=== PATIENT | male | born 1950 | race Hispanic/Latino ===

== ENCOUNTER 2019-05-12 15:25 | Emergency (ER) | payer OTHER ==
[~2019-05-12] VITALS: Ht 172.7 cm; Wt 84.4 kg
[2019-05-12] MEDS ORDERED: COREG6.25 MG PO (15:53)
[2019-05-12] MEDS ORDERED: CITALOPRAM HBR40 MG PO (15:53)
[2019-05-12] MEDS ORDERED: ASPIR 8181 MG PO (15:53)
[2019-05-12] MEDS ORDERED: DOCUSATE SODIU250 MG PO (15:54)
[2019-05-12] MEDS ORDERED: NITROSTAT0.4 MG SL (15:55)
[2019-05-12] MEDS ORDERED: ACID CONTROL150 MG PO (15:56)
[2019-05-12] MEDS ORDERED: CRESTOR40 MG NG (15:56)
[2019-05-12] MEDS ORDERED: ALL DAY ALLERGY10 M3 PO (15:59)
[2019-05-12] MEDS ORDERED: HYDROXYZINE HCL50 MG PO (16:00)
== END 2019-05-12 18:08 | disposition home or self-care (01) ==
LOC: ED 15:25
DX: I80.01 Phlebitis and thrombophlebitis of superficial vessels of right lower extremity (principal); I10 Essential (primary) hypertension; Z87.891 Personal history of nicotine dependence; Z88.8 Allergy status to other drugs, medicaments and biological substances; Z88.5 Allergy status to narcotic agent; Z88.1 Allergy status to other antibiotic agents; Z79.899 Other long term (current) drug therapy; Z79.82 Long term (current) use of aspirin
CPT/HCPCS: 93971; 99284-25

== ENCOUNTER 2020-10-10 13:25 | Emergency (ER) | payer OTHER ==
[~2020-10-10] VITALS: Ht 172.7 cm; Wt 84.4 kg
[~2020-10-10 13:25] MED LIST: ACID CONTROL150 MG PO; ALL DAY ALLERGY10 M3 PO; CITALOPRAM HBR40 MG PO; COREG6.25 MG PO; CRESTOR20 MG PO; DOCUSATE SODIU250 MG PO; HYDROXYZINE HCL50 MG PO; NITROSTAT0.4 MG SL
[2020-10-10] MEDS ORDERED: NORVASC5 MG PO (13:37)
[2020-10-10] MEDS ORDERED: FLUVOXAMINE MA100 MG PO (13:38)
[2020-10-10] MEDS ORDERED: NAPROXEN500 MG PO (13:39)
[2020-10-10] MEDS ORDERED: VENTOLIN HFA18 GM INH (13:40)
[2020-10-10] MEDS ORDERED: BEVESPI AEROS10.7 GM INH (13:40)
[2020-10-10] MEDS ORDERED: OMEPRAZOLE40 MG PO (13:41)
[2020-10-10] MEDS ORDERED: DOXYCYCLINE HY100 MG PO (13:44)
--- NOTE | 2020-10-11 19:57 | EKG ---
[facility] [address] [facility] [place], [place] [address] Signed Normal sinus rhythm Septal infarct , age undetermined T wave abnormality, consider inferolateral ischemia Abnormal ECG No previous ECGs available Confirmed by SETH KATHLEEN DO ([id number]) on 10/11/2020 7:56:47 PM Electronically Signed By: SETH KATHLEEN DO 10/11/201956 PATIENT NAME: UTE SU Electrocardiogram DATE OF : 52 PHYSICIAN: SETH KATHLEEN DO REPORT #: [id number] REPORT IS CONFIDENTIAL AND NOT TO BE RELEASED WITHOUT AUTHORIZATION
== END 2020-10-10 17:15 | disposition home or self-care (01) ==
LOC: ED 13:25
DX: J90 Pleural effusion, not elsewhere classified (principal); R91.8 Other nonspecific abnormal finding of lung field; I10 Essential (primary) hypertension; E78.00 Pure hypercholesterolemia, unspecified; Z87.891 Personal history of nicotine dependence; Z88.8 Allergy status to other drugs, medicaments and biological substances; Z88.5 Allergy status to narcotic agent; Z88.1 Allergy status to other antibiotic agents; Z79.899 Other long term (current) drug therapy; Z79.82 Long term (current) use of aspirin
CPT/HCPCS: 71045; 71260; 80053; 84484; 85025; 93005; 93010; 99285-25; Q9967

== ENCOUNTER 2020-10-19 07:26 | Observation (INO) | payer OTHER ==
[~2020-10-19] VITALS: Ht 172.7 cm; Wt 85.0 kg
[~2020-10-19 07:26] MED LIST changes: +BEVESPI AEROS10.7 GM INH; +DOXYCYCLINE HY100 MG PO; +FLUVOXAMINE MA100 MG PO; +NAPROXEN500 MG PO; +NORVASC5 MG PO; +OMEPRAZOLE40 MG PO; +VENTOLIN HFA18 GM INH
--- NOTE | 2020-10-19 12:26 | NUR ---
1110: IMAGING ARRIVES ON THE UNIT FOR PORTABLE CHEST X-RAY 1215: XRAY REVIEWED BY MD BRANDEN. NEW ORDERS RECEIVED FOR IMAGIN TO RETURN IN 2 HOURS FROM POST PROCEDURAL XRAY TO COMPLETE INSPIRATORY AND EXPIRATORY XRAY. 1220: PT COMFORTABLE. REPORTS DECREASED WORK OF BREATHING. VSS, RESP EVEN AND UNLABORED. NO NEEDS VOICED AT THIS TIME. [facility] GUARDS REMAIN AT THE BEDSIDE. CALL LIGHT WITHIN REACH
--- NOTE | 2020-10-19 13:21 | NUR ---
1315: IMAGING ARRIVES AT THE BEDSIDE TO COMPLETE INSPIRATORY AND EXPIRATORY XRAY. RESULTS TO BE CALLED TO MD BRANDEN
--- NOTE | 2020-10-19 15:18 | NUR ---
1400: CHEST XRAY REVIEWED BY MD BRANDEN. NEW ORDER RECEIVED FOR PT TO BE ADMITTED TO SURGICAL UNIT. NURSING POLE FRAMER MACHINE NOTIFIED AND BED ACQUIRED. 20G IV STARTED AND FIRST LITER OF LR STARTED ORDERED. 1425: PT WHEELED TO ROOM 109 ON SURGICAL UNIT IN STRETCHER ACCOMPANIED BY TWO [facility] GUARDS. PT TRANSFERS TO BED INDEPENDENTLY. BEDSIDE REPORT GIVEN TO PARKER ATKINSON AND CARE ASSUMED
--- NOTE | 2020-10-19 15:26 | NUR ---
PT TO ROOM VIA BEBARFAREEDEY ABLE TO SELF TRANSFER TO BED. PT DENIES PAIN OR DISCOMFORTS. VITALS IN NORMAL RANGE SATS HIGH 90'S GAURDS ARE PRESENT. REPORT RECEIVED. H20 AND CALL LIGHT AT BEDSIDE MEAL ORDERED
--- NOTE | 2020-10-19 15:30 | NUR ---
BOTH NARES SWABBED FOR COVID-19 WITHOUT COMPLICATION. SAMPLE TAKEN TO LAB.
--- NOTE | 2020-10-19 16:44 | NUR ---
PT HAS CONTINUED TO BE UPBEAT AND TALKATIVE SINCE RETURN FROM PACU. HE IS RESTING IN BED GAURDS PRESENT. PT USES CALL LIGHT APPROPRIATELY AND IS COOPERATIVE. EATS 100% OF AFTERNOON MEAL DRINKING PLENTY OF FLUIDS. DENIES PAIN, DISCOMFORTS, OR SOB. SATS REMAIN IN THE HIGH 90'S AT EACH CHECK. PT VERBALIZES UNDERSTANDING OF S/S TP REPORT TO STAFF.
[2020-10-19] MEDS ORDERED: ADULT ASPIRIN R81 MG PO (18:33)
--- NOTE | 2020-10-19 18:33 | NUR ---
PATIENT IN BED WATCHING TV. GUARD IN ROOM. FRESH WATER GIVEN. VITALS AND I&O'S CHARTED. CALL LIGHT IN REACH. NO FURTHER NEEDS AT THIS TIME.
[2020-10-19] MEDS ORDERED: CRESTOR10 MG PO (18:39)
[2020-10-19] MEDS ORDERED: FLOMAX0.4 MG PO (18:41)
[2020-10-19] MEDS ORDERED: NASACORT10.8 ML NAS (18:44)
--- NOTE | 2020-10-19 18:44 | NUR ---
MED REC COMPLETE
--- NOTE | 2020-10-19 19:35 | NUR ---
BEDSIDE REPORT RECEIVED FROM PARKER GARCIA. pt RESTING IN BED. GUARDS IN ROOM. pt DENIES PAIN. DENIES NEEDS AT THIS TIME. IVF INFUSING WNL. URINAL EMPTIED IN RESTROOM. CHEST X-RAY COMPLETE AROUND 1899.
--- NOTE | 2020-10-19 20:20 | NUR ---
DR OTERO IN EXAMINED PT. PLAN TO HOLD OFF ON THE CHEST TUBE AT THIS TIME.
--- NOTE | 2020-10-19 20:43 | NUR ---
pt AWAKE RESTING IN BED AWAKE. GUARDS IN ROOM. IV SITE FLUSHED WNL, GOOD BLOOD RETURN. IVF INFUSING ORDERED WNL. LUNG SOUNDS CLEAR THROUGHOUT ALL LOBES. 2L OYXGEN BY NC IN PLACE. VSS. BANDAID CLEAN DRY AND INTACT OF LEFT SIDE. SANDWICH BOX PROVIDED REQUESTED. CALL LIGHT WITHIN REACH. NO ADDITIONAL NEEDS AT THIS TIME.
--- NOTE | 2020-10-19 22:35 | NUR ---
CHECKED ON pt. RESTING IN BED ON RIGHT SIDE WITH 2L OXYGEN BY NC IN PLACE. BREATHING EQUAL AND UNLABORED. GUARDS PRESENT IN ROOM.
--- NOTE | 2020-10-20 00:23 | NUR ---
ANSWERED CALL LIGHT. WATER PROVIDED. EMPTIED URINAL.
--- NOTE | 2020-10-20 00:50 | NUR ---
pt AWAKE RESTING IN BED WATCHING TV. STATES "I WAS ASLEEP, BUT JUST WOKE UP AFTER THE GUARDS SWITCHED". NEW BAG IVF INFUSING WNL ORDERED. NO REQUESTS AT THIS TIME.
--- NOTE | 2020-10-20 01:59 | NUR ---
pt SLEEPING, AWAKENS TO VOICE. VSS. ASSESSMENT COMPLETE. LUNG SOUNDS CLEAR THROUGHOUT. 2L OXYGEN BY NC IN PLACE. IVF INFUSING WNL. pt DENIES PAIN. DENIES SOB. DENIES ANY NEEDS. GUARDS PRESENT IN ROOM.
--- NOTE | 2020-10-20 05:00 | NUR ---
CHECKED ON pt. RESTING IN BED AWAKE, GUARDS AT BEDSIDE. VSS. 2L OYXGEN BY NC IN PLACE. NO RESPIRATORY DISTRESS NOTED. URINAL EMPTIED. CALL LIGHT IN REACH.
--- NOTE | 2020-10-20 07:10 | NUR ---
Report received from April CANALES. Pt resting in bed, no needs identified at this time, will continue plan of care.
--- NOTE | 2020-10-20 08:00 | NUR ---
Spoke with pt and he reside at [facility]. He uses a walker and a shower chair. Denies needs on dc. States he is feeling 100% better since his thoracentesis. Will return to [facility] on dc with correctional of- ficers.
--- NOTE | 2020-10-20 09:30 | NUR ---
This RN in room to assess patient, resting in bed and stating no pain or needs, "feeling better today". VSS, A+O. Lung sounds clear. Intermittent shallow breaths between deep breathing. 2L O2 NC in place, spo2 98%. Bowel tones active, breakfast ordered. No further needs.
--- NOTE | 2020-10-20 11:30 | NUR ---
Discharge teaching provided and pt verbalizes understanding. No questions at this time. Educated regarding signs and sx of emergency, when to seek treatment, patient demonstrates learning. VSS. IV removed. Pt on RA and tolerating well with SPO2 at 95%. Discharge paperwork provided to correctional officers and report called to [facility].
--- NOTE | 2020-10-20 11:41 | OR ---
[facility] [address] [place], [place] [address] Signed DATE OF OPERATION: 10/19/2020 SURGEON: Melia Otero MD PREOPERATIVE DIAGNOSES: 1. Left pleural effusion; probable malignant. 2. Left lung nodules, mediastinal adenopathy and basilar atelectasis. POSTOPERATIVE DIAGNOSES: 1. Left pleural effusion; probable malignant. 2. Left lung nodules, mediastinal adenopathy and basilar atelectasis. PROCEDURE: Left thoracentesis (2.8 L). ANESTHESIA: 6 mL of lidocaine 1% with epinephrine. INDICATION: This 70-year-old white man is a prisoner at [facility]. He has been referred as an outpatient by ZAKI Booth, with recent findings of a symptomatic large left pleural effusion. A CT scan has shown mediastinal adenopathy, pleural nodules on the left side and high probability, the effusion represents a malignant pleural effusion. He is increasingly symptomatic. He was seen in the emergency room by Dr. Juan Jose Sol on October 10, confirming these findings with CT scan. A chest x-ray was performed today prior to my consultation with him as outpatient confirming a very large left pleural effusion. He did not have mediastinal shift. I have recommended a left pleural thoracentesis for collection of fluid to assess cytology and affirm the clinical suspicion of malignancy which may guide further therapy. Notably, if the pleural effusion proves to be malignant, then treatment for cure would be unlikely. In addition to the diagnostic intention of thoracentesis, a therapeutic one is intended as he does have significant dyspnea, particularly with exertion. The patient does have some chest wall pain and is considered to have some bony metastatic lesions of the ribs as well. The risks of bleeding, infection, pneumothorax, and other unforeseen complications were reviewed in detail with the patient. He understands and wishes to proceed. FINDINGS: Bloody left pleural effusion was noted upon aspiration. Nearly 2.8 L was extracted, which did result in characteristic cough and some apical discomfort. In time, this Electronically Signed By: MELIA OTERO MD 10/20/20 1141 PATIENT NAME: UTE SU OPERATIVE REPORT DATE OF : 52 REPORT #: [id number] PHYSICIAN: MELIA OTERO MD PCP: BLANCA CALVIN MD REPORT IS CONFIDENTIAL AND NOT TO BE RELEASED WITHOUT AUTHORIZATION [facility] [address] [place], [place] [address] Signed resolved entirely. A postprocedure chest x-ray was obtained which showed essentially clearance of the pleural effusion, but with some remaining basilar atelectasis, but also with a very small paramediastinal pneumothorax identified primarily by the radiologist (Dr. Cortés). A 2 hour post chest x-ray repeat is anticipated to assure there is no progression of the pneumothorax, which is small enough, I would not recommend chest tube placement at this time. DESCRIPTION OF PROCEDURE: In the upright position with arms draped over a [place] stand with pillows. The left chest was examined with the [employer] ultrasound device. This did show pleural effusion. The left scapular tip was identified and marked and the area of the left posterior thorax prepared with a chlorhexidine solution and draped sterilely. A 1% lidocaine with epinephrine was injected locally including directly over what was likely the 7th rib. The pleural space was gently entered with the finding needle showing some bloody pleural fluid. Using the thoracentesis catheter kit passage directly over the top of the 7th rib was undertaken passing into the pleural space and delivering bloody morenita fluid without problem. The flexible catheter was advanced into the pleural space. The needle itself removed. A three way stopcock device was used to allow for drainage with Vacutainer bottles. Three bottles were used with a total of approximately 2.8 L in total removed. Careful monitoring during the course of thoracentesis did not show any adverse effects (re-expansion pulmonary edema, etc.) from a clinical standpoint. He did have a cough toward the end of the thoracentesis and some left shoulder pain. The catheter was removed. A Band-Aid was applied. A portable chest x-ray was performed and reviewed with Dr. Cortés showing what was considered a "mediastinal" pneumothorax which was quite tiny. This was met in the air space in alignment with the mediastinum. There was no large pneumothorax by any means. Clearance of the pleural space was noted though there remains basilar atelectasis on the left. A post chest x-ray repeat in 2 hours with inspiration, expiratory technique will be undertaken to assure that the tiny pneumothorax has not expanded. Discussed all this with the patient. MD ABBEY Galvan/MAUREEN /[id number] Electronically Signed By: MELIA OTERO MD 10/20/20 1141 PATIENT NAME: UTE SU OPERATIVE REPORT DATE OF : 52 REPORT #: [id number] PHYSICIAN: MELIA OTERO MD PCP: BLANCA CALVIN MD REPORT IS CONFIDENTIAL AND NOT TO BE RELEASED WITHOUT AUTHORIZATION [address], [place] [address] Signed cc: ZAKI Castañeda Copies: MARIMAR GOODE ~ Electronically Signed By: MELIA OTERO MD 10/20/20 1141 PATIENT NAME: UTE SU OPERATIVE REPORT DATE OF : 52 REPORT #: [id number] PHYSICIAN: MELIA OTERO MD PCP: BLANCA CALVIN MD REPORT IS CONFIDENTIAL AND NOT TO BE RELEASED WITHOUT AUTHORIZATION
--- NOTE | 2020-10-20 11:41 | CONS ---
[facility] [address] [place], [place] [address] Signed DATE OF CONSULTATION: 10/19/2020 REQUESTING PHYSICIAN: Marimar Goode, [facility] ([place] [facility] PROBLEM: Symptomatic left pleural effusion, left pulmonary mass. HISTORY OF PRESENT ILLNESS: This 70-year-old white man is a prisoner at [facility], previously a patient of Dr. Calvin. He has been identified as having shortness of breath for several months and evaluation has shown through the emergency room evaluation on October 10, 2020. A left-sided pleural effusion. A CT scan was performed, which showed a large left pleural effusion as well as a dense opacification of the left lung base, multiple vertebral OSTEOLYTIC lesions likely considered metastatic and bilateral mediastinal and right hilar lymphadenopathy also considered malignant. Pleural nodularity was noted on the left side. The patient has significant dyspnea. He was seen in the emergency room and returned to the [facility] where consideration was made for an outpatient thoracentesis to establish a diagnosis related to the pleural effusion as well as treatment of the dyspnea associated with the pleural effusion. It is highly improbable that this process would be curable by conventional methods. The patient initially presented to the emergency room several days ago with some hemoptysis, which has not been persistent. The patient says that his hemoptysis is more likely related to "dried out mucous membranes." LAB STUDIES: Recently performed showed electrolytes normal, though creatinine was elevated at 1.32. Liver enzymes show an elevated alkaline phosphatase of 194. Troponin was 0.05. Albumin 4.0. A CBC showed a white count of 9.5 and hematocrit of 46.1 with platelets 287,000. Currently, patient has some pain in his ribs on the left side with intense coughing, which occurs occasionally and but no other particular issues other than the dyspnea. 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 He takes no chronic anticoagulants of any sort. MEDICATIONS: Include aspirin, carvedilol, nitroglycerin as needed for chest pain, previously Zantac, Electronically Signed By: MELIA OTERO MD 10/20/20 1141 PATIENT NAME: UTE SU CONSULTATION DATE OF : 52 REPORT #: [id number] PHYSICIAN: MELIA OTERO MD PCP: BLANCA CALVIN MD REPORT IS CONFIDENTIAL AND NOT TO BE RELEASED WITHOUT AUTHORIZATION [facility] [address] [place], [place] [address] Signed and Crestor. ALLERGIES: He is considered to have allergies to phenothiazines, atorvastatin, chlorpromazine, codeine, morphine, and niacin. REVIEW OF SYSTEMS: He denies any new symptoms other than those described previously. PHYSICAL EXAMINATION: GENERAL: Bearded white man who appears to be comfortable and not toxic in any way. NECK: Trachea is midline. CHEST: Shows normal respiratory excursion. Mildly tachypneic with a respiratory rate of 20. ABDOMEN: Soft and nondistended. I detect no ascites. EXTREMITIES: Show no clubbing, cyanosis, or edema. A chest x-ray has been performed which I will review. 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 I have discussed with the patient the issue regarding thoracentesis which would allow for probably temporary improvement of his dyspnea, but importantly cytologic examination of the fluid to assess for malignancy. Additional measures for palliative therapy would be undertaken if that was noted. If a malignant pleural effusion is identified, consideration might ultimately be made for left-sided pleurodesis for palliative intent. We discussed all of this. The risks of bleeding, infection, pneumothorax, and so forth were reviewed with him. He is not at increased risk of bleeding based on his lab studies or history though it is always a consideration. We will proceed with thoracentesis today to accommodate the logistical difficulties of [place] [facility] to assist him in his symptomatic effusion and for diagnosis. MD ABBEY Galvan/IZAL Electronically Signed By: MELIA OTERO MD 10/20/20 1141 PATIENT NAME: UTE SU CONSULTATION DATE OF : 52 REPORT #: [id number] PHYSICIAN: MELIA OTERO MD PCP: BLANCA CALVIN MD REPORT IS CONFIDENTIAL AND NOT TO BE RELEASED WITHOUT AUTHORIZATION [facility] [address], [place] [address] Signed /[id number] cc: ZAKI Springer [facility] Copies: MARIMAR GOODE ~ Electronically Signed By: MELIA OTERO MD 10/20/20 1141 PATIENT NAME: UTE SU CONSULTATION DATE OF : 52 REPORT #: [id number] PHYSICIAN: MELIA OTERO MD PCP: BLANCA CALVIN MD REPORT IS CONFIDENTIAL AND NOT TO BE RELEASED WITHOUT AUTHORIZATION
--- NOTE | 2020-11-05 08:41 | PATH ---
[facility] [address] [place], [place] [address] Signed THIS IS AN ADDENDUM REPORT ORDERING PHYSICIAN: Loco Veliz MD PATIENT NAME: UTE SU GENDER: M : 1950 SPECIMEN(S): A LEFT PLEURAL FLUID GROSS DESCRIPTION: RECEIVED IN A SYRINGE, 41 ML OF MURKY, BLACK-RED FLUID, FRESH CLINICAL HISTORY: NO CLINICAL DATA PROVIDED LABORATORY PREPARATIONS: 1 MONOLAYER, 1 CELL BLOCK CYTOLOGIC INTERPRETATION: Pleural effusion, left: Positive for malignant cells. Non-small cell lung carcinoma - Adenocarcinoma. See Description. PATHOLOGIST COMMENTS: A diagnostic alert was initiated by Dr. Riley on 10/22/2020 (Dr. Veliz to be called). As part of [facility]' Quality Improvement Program, this case was reviewed by another member of our pathology staff. ALK, EGFR, ROS1, and YOK1oevytpn is recommended. Please contact [facility] with testing request. NAL:NRT:emh:C1NR DESCRIPTION: One monolayer slide and one cell block slide were examined and demonstrate numerous malignant cells present singly and in clusters, characterized by enlarged round to oval nuclei with vesicular chromatin, prominent nucleoli, and eosinophilic cytoplasm with occasional cytoplasmic vacuoles. There is a background of chronic inflammatory cells. A panel of immunohistochemical stains (with appropriately staining controls) were performed. The tumor cells are positive for MOC31 and BerEP4, confirming epithelial origin. A TTF-1/Napsin multiplex stain (with appropriately staining PATIENT NAME: UTE SU PATHOLOGY DATE OF : 52 REPORT #: [id number] PHYSICIAN: ELISA HURTADO PCP: BLANCA CALVIN MD REPORT IS CONFIDENTIAL AND NOT TO BE RELEASED WITHOUT AUTHORIZATION [facility] [address] [place], [place] [address] Signed controls) is positive within the tumor cells, supporting the diagnosis of non-small cell lung carcinoma, consistent with adenocarcinoma. Calretinin highlights rare background mesothelial cells, and WT1 demonstrates non-specific, rare cytoplasmic tumor cell staining. NAL:em SPECIMEN ADEQUACY: Satisfactory for Evaluation ADDITIONAL NOTES: Immunohistochemical and/or in situ hybridization studies were performed on this case with the appropriate positive controls that react as expected. This test was developed and its performance characteristics determined by [facility]. It has not been cleared or approved by the U.S. Food and Drug Administration. The FDA has determined that such clearance or approval is not necessary. This test is used for clinical purposes. It should not be regarded as investigational or for research. [facility] is certified under the Clinical Laboratory Improvement Amendments of 1988 (CLIA) as qualified to perform high complexity clinical laboratory testing. This assay has not been validated for specimens that have been decalcified. PERFORMING LABORATORY: Professional interpretation was performed by [facility], [facility], [address] [address] (Professor Of Anthropology: Serina Riley MD; CLIA# [id number]). Technical preparation was performed by [facility], [address] [place] [address] (Professor Of Anthropology: Douglas Caceres D.O.; CLIA#: [id number]). REASON FOR ADDENDUM REPORT: To add results of additional testing. ADDENDUM CYTOLOGIC INTERPRETATION: Left pleural effusion, PD-L1 expression by IHC: - Tumor proportion score: 80%. - Interpretation of PD-L1 expression level: High Expression (greater than or equal to 50%). - Intensity: Moderate. ADDENDUM PATHOLOGIST COMMENTS: PD-L1 protein expression by immunohistochemistry is performed on block A1 at the request of Carla Hurley NP. TTP:[facility] ADDITIONAL NOTES: PATIENT NAME: UTE SU PATHOLOGY DATE OF : [birth year] REPORT #: [id number] PHYSICIAN: ELISA PATHOLOGY PCP: BLANCA CALVIN MD REPORT IS CONFIDENTIAL AND NOT TO BE RELEASED WITHOUT AUTHORIZATION [facility] [address] [place] [id number] Signed Immunohistochemistry (IHC) studies for PD-L1 using the concentrated Dako 22C3 clone on the VENTANA BenchMark Ultra platform with OptiView detection was performed at [facility], [address] [place] [address]. The Dako 22C3 pharmDx clone is not FDA approved for use on the VENTANA platform; however, comparison studies show nearly 100% concordance of results for the test performed using the concentrated Dako 22C3 clone on the [employer] BenchMark Ultra platform compared to the FDA approved Dako 22C3 pharmDx protocol on the Dako Autostainer Link48 (ASL48) platform*. The test using the concentrated Dako 22C3 clone was developed and its performance characteristics determined by [facility], but this does not represent FDA-approved application of this assay. [facility] is certified under the Clinical Laboratory Improvement Amendment of 1988 (CLIA) as qualified to perform high complexity clinical laboratory testing. This test is used for clinical purposes. It should not be regarded as investigational or for research. * Use of the 22C3 anti-PD-L1 antibody to determine PD-L1 expression in multiple automated immunohistochemistry platforms Coleen M, Brenda S, Riri Broderick, Esteban L, Lavelle J, et al. (2017). Use of the 22C3 anti-PD-L1 antibody to determine PD-L1 expression in multiple automated immunohistochemistry platforms. PLOS ONE 12(8): y3963942. https://doi.org/10.1371/journal.pone.6004686 PERFORMING LABORATORY: The technical component and professional interpretation were performed by [facility], [address] [place] [address] (Professor Of Anthropology: Douglas Caceres D.O.; CLIA#: [id number]). To add results of additional testing. SPECIMEN SOURCE: A. FISH Analysis, ALK/ROS1 FISH, BLOCK A1 CLINICAL HISTORY: LEFT PLEURAL FLUID FISH (fluorescence in situ hybridization) RESULT: Negative INTERPRETATION: ALK Rearrangement: Not Detected (Negative) ROS1 Gene Rearrangement: Not Detected (Negative) FISH probe signals were within the normal reference range. An ALK abnormal signal pattern (>/=1R,0G>/=1F) was observed in 4% of the nuclei scored and is below the cut-off for this assay. This represents a NEGATIVE result and suggests that ALK inhibitors are not indicated FISH probe signals were within the normal reference range. An ROS1 abnormal PATIENT NAME: UTE SU PATHOLOGY DATE OF : [birth year] REPORT #: [id number] PHYSICIAN: ELISA PATHOLOGY PCP: BLANCA CALVIN MD REPORT IS CONFIDENTIAL AND NOT TO BE RELEASED WITHOUT AUTHORIZATION [facility] [address] [place], [place] [address] Signed signal pattern (>/=1R,0G>/=1F) was observed in 8% of the nuclei scored and is below the cut-off for this assay. This represents a NEGATIVE result and suggests that ROS1 inhibitors are not indicated. Methodology: Interphase FISH analysis was performed using the ALK and ROS1 Break Apart FISH Probe Kit. Along with fluorescence in situ hybridization (FISH), an HE stained slide was reviewed by a pathologist to identify the target area containing invasive tumor. FISH analysis of at least 50 interphase nuclei was performed within the marked target area. Reference Ranges: ALK Lung: The sample is considered positive if >50% of the first 50 cells scored are positive, and considered negative if <10% cells are positive. If 10-50% of cells are positive, an additional 50 cells are evaluated by a second technologist. The sample is then considered positive if > or = 15% of all 100 cells scored are positive. ROS1: The sample is considered positive if >50% of the first 50 cells scored are positive, and considered negative if <10% cells are positive. If 10-50% of cells are positive, an additional 50 cells are evaluated by a second technologist. The sample is then considered positive if > or = 15% of all 100 cells scored are positive. ISCN: Probe Set Detail: ALK Lung: nuc juvencio(ALKx1>1)[48/50] ROS1: nuc juvencio(ROS1x1>1)[46/50] Comments: The results of this assay have been determined within the limitations described and should not be used interchangeably with resulting values from other methods or kits. These results are intended to be used as an adjunct to other concurrent testing in patient care management. Therefore, the presence or absence of a malignant disease cannot be determined based solely on these results. Clinical correlation is advised References: Lisa S, Michelle SS. Personalized therapy for lung cancer: striking a moving target. [employer]. 2018;3(15). PMID:74969416. [facility] [place] of ALK and ROS1 testing in Lung Cancer, second edition. 2016 FISH Analysis Summary: Nuclei Scored: 50 Scoring Method: Manual; CPT Code 71338 PATIENT NAME: UTE SU PATHOLOGY DATE OF : [birth year] REPORT #: [id number] PHYSICIAN: ELISA HURTADO PCP: BLANCA CALVIN MD REPORT IS CONFIDENTIAL AND NOT TO BE RELEASED WITHOUT AUTHORIZATION [facility] [address] [place] [id number] Signed Number of Probe units: 2 Multiplex Probe sets: ALK Lung, ROS1 ADDITIONAL NOTES: This test was developed and its performance characteristics determined by [facility] It has not been cleared or approved by the US Food and Drug Administration. The Olig[employer] DNA probe vendor for this study was [employer]. All controls were within expected ranges PERFORMING LABORATORY: The technical component of the FISH testing was performed by [facility], [address] [place], [place] [address] [address] (Professor Of Anthropology: Douglas Caceres D.O.; CLIA#: [id number]). Professional interpretation was performed by [facility], [address] [place], [place] [address] [address] (Professor Of Anthropology: Douglas Caceres D.O.; CLIA#: [id number]). FISH DICTATION PERFORMED BY: Joseph Cornejo MD, Pathologist Nov 02 2020 12:39PM FINAL DIAGNOSIS PERFORMED BY: Natasha Delarosa MD, Pathologist Nov 02 2020 12:39PM Diagnostician: Abby LATHAM ([facility]) Supervisor [employer] Diagnostician: Natasha Delarosa MD Pathologist Diagnostician: Serina Riley MD Pathologist Electronically Signed 11/02/2020 Copies: ~ PATIENT NAME: UTE SU PATHOLOGY DATE OF : [birth year] REPORT #: [id number] PHYSICIAN: ELISA PATHOLOGY PCP: BLANCA CALVIN MD REPORT IS CONFIDENTIAL AND NOT TO BE RELEASED WITHOUT AUTHORIZATION
== END 2020-10-20 12:15 | disposition home or self-care (01) ==
LOC: DS 07:26 → MS 13:58 → DS 13:58 → MS 10-20 12:15
PROVIDERS: ADMIT Surgery; ATTEND Surgery
PROC: 0W9B3ZZ Drainage of Left Pleural Cavity, Percutaneous Approach (ICD-10-PCS; principal; 2020-10-19)
PROC: BB4BZZZ Ultrasonography of Pleura (ICD-10-PCS; 2020-10-19)
DX: C34.92 Malignant neoplasm of unspecified part of left bronchus or lung (principal); R59.0 Localized enlarged lymph nodes; J98.11 Atelectasis; Z95.1 Presence of aortocoronary bypass graft; Z88.5 Allergy status to narcotic agent; Z88.8 Allergy status to other drugs, medicaments and biological substances; Z20.822 Contact with and (suspected) exposure to COVID-19
CPT/HCPCS: 32555; 71045; C9803; G0378; J7121; U0003

== ENCOUNTER 2020-11-06 08:59 | Emergency (ER) | payer OTHER ==
[~2020-11-06] VITALS: Ht 172.7 cm; Wt 84.8 kg
[~2020-11-06 08:59] MED LIST changes: +ADULT ASPIRIN R81 MG PO; +CRESTOR10 MG PO; +FLOMAX0.4 MG PO; +NASACORT10.8 ML NAS
--- OUTSIDE RECORDS SUMMARY | 2020-11-06 09:06 | XMS ---
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 Nasreen has no Care Guidelines for this patient. Anna Marie VISIT COUNT (12 MO.) 2 [facility] TOTAL 2 NOTE: Visits indicate total known visits. ED/C VISIT TRACKING (12 MO.) 11/06/2020 08:[address] 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 - Other nonspecific abnormal finding of lung field - Personal history of nicotine dependence - Pleural effusion, not elsewhere classified INPATIENT VISIT TRACKING (12 MO.) 10/19/2020 13:58 [facility] [place] TYPE: Observation COMPLAINT: - LT PNEUMOTHORAX DIAGNOSES: - Allergy status to other drugs, medicaments and biological substances - Presence of aortocoronary bypass graft - Other nonspecific abnormal finding of lung field - Malignant neoplasm of unspecified part of left bronchus or lung - Pleural effusion, not elsewhere classified - Localized enlarged lymph nodes - Allergy status to narcotic agent - Atelectasis [email or web address]
--- NOTE | 2020-11-07 12:55 | EKG ---
[facility] [address] [facility] [place] [address] Signed Normal sinus rhythm T wave abnormality, consider anterolateral ischemia Abnormal ECG When compared with ECG of 10-OCT-2020 13:27, Criteria for Septal infarct are no longer present Non-specific change in ST segment in Anterior leads T wave inversion now evident in Anterior leads Confirmed by JORGE SMITH MD ([id number]) on 11/07/2020 12:54:56 PM Electronically Signed By: JORGE SMITH MD 11/07/20 1255 PATIENT NAME: UTE SU Electrocardiogram DATE OF : 52 PHYSICIAN: JORGE SMITH MD REPORT #: [id number] REPORT IS CONFIDENTIAL AND NOT TO BE RELEASED WITHOUT AUTHORIZATION
== END 2020-11-06 14:58 | disposition home or self-care (01) ==
LOC: ED 08:59
DX: C34.92 Malignant neoplasm of unspecified part of left bronchus or lung (principal); J91.0 Malignant pleural effusion; I10 Essential (primary) hypertension; E78.00 Pure hypercholesterolemia, unspecified; Z87.891 Personal history of nicotine dependence; Z88.8 Allergy status to other drugs, medicaments and biological substances; Z88.1 Allergy status to other antibiotic agents; Z88.5 Allergy status to narcotic agent; Z79.899 Other long term (current) drug therapy; Z79.82 Long term (current) use of aspirin
CPT/HCPCS: 32554; 71045; 80053; 85025; 93005; 93010; 99285-25; J7040

== ENCOUNTER 2020-11-21 20:15 | Inpatient (IN) | payer OTHER ==
[~2020-11-21] VITALS: Ht 175.3 cm; Wt 82.2 kg
--- OUTSIDE RECORDS SUMMARY | 2020-11-21 20:22 | XMS ---
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 Anna Marie VISIT COUNT (12 MO.) 3 [facility] TOTAL 3 NOTE: Visits indicate total known visits. ED/UCC VISIT TRACKING (12 MO.) 11/21/2020 20:16 [facility] [place] TYPE: Emergency COMPLAINT: - ABD PAIN, COUGHING BLOOD 11/06/2020 08:59 [facility] [place] TYPE: Emergency COMPLAINT: - SOB DIAGNOSES: - Essential (primary) hypertension - Personal history of nicotine dependence - longterm (current) use of aspirin - Shortness of breath - Allergy status to other drugs, medicaments and biological substances - Other nursing home (current) drug therapy - Malignant pleural effusion - Allergy status to narcotic agent - Allergy status to other antibiotic agents - Malignant neoplasm of unspecified part of left bronchus or lung - Pure hypercholesterolemia, unspecified 10/10/2020 13:26 [facility] [place] TYPE: Emergency COMPLAINT: - SOB DIAGNOSES: - Allergy status to narcotic agent - Allergy status to other antibiotic agents - Shortness of breath - Allergy status to other drugs, medicaments and biological substances - Pure hypercholesterolemia, unspecified - Other buttermaker (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 [place] TYPE: Observation COMPLAINT: - LT PNEUMOTHORAX DIAGNOSES: - Allergy status to other drugs, medicaments and biological substances - Presence of aortocoronary bypass graft - Other nonspecific abnormal finding of lung field - Malignant neoplasm of unspecified part of left bronchus or lung - Pleural effusion, not elsewhere classified - Localized enlarged lymph nodes - Allergy status to narcotic agent - Atelectasis [id number]
[2020-11-21] MEDS ORDERED: FLUVOXAMINE MAL50 MG PO (20:47)
[2020-11-21] MEDS ORDERED: DEXAMETHASONE4 MG PO (20:49)
[2020-11-21] MEDS ORDERED: LACTULOSE10 GM/152 PO (20:50)
[2020-11-22] MEDS ORDERED: CALCIUM CITRAT1 EA15 PO (16:27)
[2020-11-22] MEDS ORDERED: COLACE100 MG PO (16:28)
[2020-11-22] MEDS ORDERED: FOLIC ACID0.4 MG PO (16:28)
[2020-11-22] MEDS ORDERED: SINGULAIR10 MG PO (16:28)
--- NOTE | 2020-11-28 15:53 | OR ---
[facility] [address] [place], [place] [address] Signed DATE OF OPERATION: 11/25/2020 SURGEON: Melia Otero MD PREOPERATIVE DIAGNOSIS: Recurrent symptomatic left malignant pleural effusion. POSTOPERATIVE DIAGNOSIS: Recurrent symptomatic left malignant pleural effusion. PROCEDURE: Left thoracentesis (1.875 L). ANESTHESIA: 1% lidocaine. 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 He has undergone left-sided thoracentesis initially by me and subsequently in the ER a few weeks ago. He was recently admitted, found to have a pulmonary embolism on the right side and recurrent left pleural effusion on the left side. The patient has initiated palliative chemotherapy under the direction of Dr. Chase, which caused him to have pancytopenia acutely including a very low platelet count, white count and hematocrit. Up until today, although he has had a rather sizable left-sided pleural effusion, he was not particularly terribly symptomatic with the effusion as he had been in the past. Today, however, he has a bit more dyspnea. A chest x-ray performed yesterday shows a very large left pleural effusion. It is noted that previous thoracentesis has shown a small apical pneumothorax. After conferring with his provider, the hospitalist, Dr. Patel today, consideration is made for left-sided thoracentesis. We note that the patient is taking therapeutic doses of Lovenox for his right-sided pulmonary embolism and is also on anti-platelet agents. The risk of bleeding, infection, pneumothorax, and need for other indicated procedures was reviewed with him. He understands and wished to proceed. Additionally, it had been anticipated that the patient undergo thoracoscopy or at least chest tube placement with palliative pleurodesis if it can be demonstrated that the left lung reasonably expands to allow for obliteration of the pleural space. This has never as of yet been demonstrated. Electronically Signed By: MELIA OTERO MD 11/28/20 1553 PATIENT NAME: UTE SU OPERATIVE REPORT DATE OF : 52 REPORT #: [id number] PHYSICIAN: MELIA OTERO MD PCP: MARIMAR GOODE REPORT IS CONFIDENTIAL AND NOT TO BE RELEASED WITHOUT AUTHORIZATION [facility] [address] [place], [place] [address] Signed FINDINGS: Thin dark bloody pleural effusion fluid was noted on the left side. 1.875 L were removed. More could certainly have been removed. However, the patient was having a fair amount of pain related to expansion of the lung as well as vagal symptoms including asymptomatic hypotension with a systolic pressure of 77. A thoracentesis was discontinued at that point and continued monitoring of the patient showed a return of blood pressure to 144 systolic. Postprocedure chest x-ray showed improvement of left side of the lung, though in the medial apical aspect there appears to be what is likely a fixed pneumothorax. The thoracentesis was extremely straightforward and without high probability of causing the pneumothorax itself. DESCRIPTION OF PROCEDURE: The patient is seen at the bed side. His arms were straddled over a medicine table with two pillows supporting him. The left scapular tip was marked and the left posterior thorax prepared with a Betadine based solution. A 1% lidocaine was injected over what is likely the 7th rib, providing a good local anesthetic. He is in the thoracentesis kit. The pleural space was entered with special care taken to direct the catheter directly over the rib. The pleural space was entered and aspiration showed thin, but dark bloody fluid. The catheter was advanced into the pleural space and attached to a three-way stopcock with the appropriate tubing and 1.875 L of bloody pleural effusion fluid was withdrawn. The patient began to have pain as would be expected with re-expansion of the lung and cessation of aspiration was undertaken at that point. Some amount of time was allowed to lapse measuring his blood pressure and other parameters. His systolic pressure was approximately 72, ultimately advancing to 144. Although additional fluid could easily have been withdrawn, would not likely been tolerated due to the discomfort and resultant vagal symptoms and therefore, the catheter was removed and a Band-Aid was applied. A chest x-ray was performed at the conclusion of procedure in an upright position showing improvement of his left pleural space, but in the medial apical aspect area suspect for fixation of the lung, not allowing for full re-expansion of the lung was noted. Melia Otero MD Electronically Signed By: MELIA OTERO MD 11/28/20 1553 PATIENT NAME: UTE SU OPERATIVE REPORT DATE OF : 52 REPORT #: [id number] PHYSICIAN: MELIA OTERO MD PCP: MARIMAR GOODE REPORT IS CONFIDENTIAL AND NOT TO BE RELEASED WITHOUT AUTHORIZATION [address] [address] Signed /MODL /[id number] cc: MD Ute Montenegro, MD Toby Patel MD Copies: JORGE SMITH MD,TOBY IVERSON MD, DO ~ Electronically Signed By: MELIA OTERO MD 11/28/20 1553 PATIENT NAME: UTE SU OPERATIVE REPORT DATE OF : 52 REPORT #: [id number] PHYSICIAN: MELIA OTERO MD PCP: AMRIMAR GOODE REPORT IS CONFIDENTIAL AND NOT TO BE RELEASED WITHOUT AUTHORIZATION
--- NOTE | 2020-11-28 15:53 | OR ---
[facility] [address] [place], [place] [address] Signed DATE OF OPERATION: 11/26/2020 SURGEON: Melia Otero MD PREOPERATIVE DIAGNOSES: 1. Recurrent left malignant pleural effusion (non-small cell lung cancer). 2. Persistent left pneumothorax, status post thoracentesis, left side 11/25/2020. 3. Known ongoing treatment for right pulmonary embolism (Lovenox). POSTOPERATIVE DIAGNOSES: 1. Recurrent left malignant pleural effusion (non-small cell lung cancer). 2. Persistent left pneumothorax, status post thoracentesis, left side 11/25/2020. 3. Known ongoing treatment for right pulmonary embolism (Lovenox). PROCEDURE: Left chest tube placement (straight 32-Armenian). ANESTHESIA: General endotracheal, Duncan Zepeda CRNA INDICATIONS: This 70-year-old white man is a prisoner at [facility] and several weeks ago was diagnosed with a left malignant pleural effusion which on cytology showed adenocarcinoma. He has had recurrent progressive left-sided pleural effusion which is symptomatic and underwent another thoracentesis by emergency room physician in the past two weeks ( ), which delivered characteristic of bloody pleural effusion, but which was beneficial for him as regards to his dyspnea. He was admitted most recently by Dr. Harrison on November 21, 2020 having shortness of breath, which was more than previously. A CT scan pulmonary angiogram confirmed right-sided pulmonary embolism. He is treated now with Lovenox at therapeutic doses (80 mg subcutaneously b.i.d.) He is noted on chest x-ray to have a rather significant left pleural effusion, but without tracheal deviation. He has had increasing symptoms in the last few days. He was additionally admitted with pancytopenia related to initiation of chemotherapy, which included thrombocytopenia, neutropenia and anemia. His bone marrow was recovering after several days of observation, IV antibiotic administration, and so forth. Platelet count is now greater than 150,000. Plans have been made by me for a thoracoscopic palliative pleurodesis or perhaps chemical pleurodesis depending on particulars. His recent admission with pulmonary embolism and so forth have precluded proceeding with that approach. Electronically Signed By: MELIA OTERO MD 11/28/20 1553 PATIENT NAME: UTE SU OPERATIVE REPORT DATE OF : 52 REPORT #: [id number] PHYSICIAN: MELIA OTERO MD PCP: MARIMAR GOODE REPORT IS CONFIDENTIAL AND NOT TO BE RELEASED WITHOUT AUTHORIZATION [facility] [address] [place], [place] [address] Signed As he was having increasing dyspnea yesterday, a left- sided thoracentesis was performed, which delivered 1.875 L of bloody pleural fluid and did improve his symptoms quite a bit. There was a persistent left medial apical pneumothorax noted on postprocedure chest x-ray which was concordant to findings at his initial thoracentesis and a 2nd thoracentesis in the ER. Concern is maintained he may have somewhat entrapped lung related to the malignant process. A followup chest x-ray this morning demonstrated a larger pneumothorax and definitely different than yesterday and on that basis, and given the fact his bone marrow is recovering progressively particularly platelet count, I have recommended placement of a chest tube to see if full lung expansion could be undertaken which may give options for meaningful palliative left pleurodesis in the near future. The risk of bleeding, infection, and so forth were with him. He understands wished to proceed. FINDINGS: Entry to the pleural space did not show entrapped lung at least in the anterior axillary line at approximately the 6th rib. A 32-Armenian chest tube was placed which delivered thin bloody pleural fluid 600 mL in amount initially. A postprocedure chest x-ray did show resolution of pneumothorax and good placement of the tube, but with hazy lung garcia otherwise. DESCRIPTION OF PROCEDURE: The patient was brought to the operating room, given a general endotracheal anesthetic. It had been anticipated that IV sedation and local would be used. However, the patient had eaten a milkshake and some liquids within 2 hours of the intended procedure, and it was thought safer to use a general anesthetic per the interventional radiologist recommendation. Satisfactory general endotracheal anesthesia was induced without problem. The left chest was prepared with a chlorhexidine solution and draped sterilely. A transverse incision was made lateral to the left nipple in what would likely be the 6th intercostal space. Using blunt dissection, dissection was carried through the subcutaneous tissue. Hemostasis was assured with electrocautery. The pleural space was entered directly over the 6th rib and a Nimisha clamp was used to provide transthoracic access. A digital examination of the pleural space did not show lung or entrapped lung in this area. A 32-Armenian straight chest tube was insinuated in the path of least resistance which allowed for egress but not vigorously of thin bloody fluid. It was secured to the skin with 2-0 nylon suture doubly applied. Lakeridge tape was applied to the connections and the mesentery pink tape tether to the midportion of the chest tube also accomplished. Gauze dressing was applied as was an OpSite. The patient was ultimately allowed to emerge from anesthesia, taken to the recovery room in good condition having suffered no known complications. A postprocedure chest x-ray Electronically Signed By: MELIA OTERO MD 11/28/20 1553 PATIENT NAME: UTE SU OPERATIVE REPORT DATE OF : 52 REPORT #: [id number] PHYSICIAN: MELIA OTERO MD PCP: MARIMAR GOODE REPORT IS CONFIDENTIAL AND NOT TO BE RELEASED WITHOUT AUTHORIZATION [facility] [address] [place], [place] [address] Signed showed the chest tube to be directed superiorly and evidence of pneumothorax on initial evaluation of the chest x-ray and haziness of the presumably re-expanded lung. MD ABBEY Galvan/MAUREEN /[id number] cc: Toby Patel MD Dr. Emma Harrison MD Copies: TOBY PATEL LOHITH VEERAPPA MD ~ Electronically Signed By: MELIA OTERO MD 11/28/20 1553 PATIENT NAME: UTE SU OPERATIVE REPORT DATE OF : 52 REPORT #: [id number] PHYSICIAN: MELIA OTERO MD PCP: MARIMAR GOODE REPORT IS CONFIDENTIAL AND NOT TO BE RELEASED WITHOUT AUTHORIZATION
--- NOTE | 2020-11-28 15:53 | CONS ---
[facility] [address] [place], [place] [address] Signed DATE OF CONSULTATION: 11/23/2020 REQUESTING PHYSICIAN: Dr. Smith. PROBLEM: Left malignant effusion, recent diagnosis of right pulmonary embolism and concurrent neutropenia following initial treatment with chemotherapy (Dr. Chase). HISTORY OF PRESENT ILLNESS: This 70-year-old white man was seen by me on October 19, 2020 in the emergency room setting, having complaints of shortness of breath for several preceding months. He had initially been seen in the emergency room on October 10, 2020, and a left-sided pleural effusion had been noted based on CT scan. There was dense opacification of the left lung base. Multiple vertebral osteolytic lesions considered metastatic and bilateral mediastinal and right hilar lymphadenopathy considered probably malignant. His significant dyspnea prompted emergency room evaluation and consultation with me and I performed left-sided thoracentesis. Cytologic examination of the fluid confirmed non-small cell lung cancer. The patient did have a small pneumothorax associated with the thoracentesis that was observed overnight showing no sign of worsening and no other problem. He was seen sometime thereafter in the emergency room once again and underwent a left-sided thoracentesis by Dr. Juan Jose Jones. He most recently presented to the emergency room on November 21 and subsequently admitted by Dr. Smith on November 22 with cough that had been ongoing, shortness of breath and some apparently right-sided chest pain. Notably, he had undergone at least one episode of chemotherapy under the direction of Dr. Chase. His underlying medical issues included COPD, history of BPH, gastroesophageal reflux, mood disorder, hypertension, and distant history of tobacco use. His examination showed no severe acute respiratory distress without accessory muscle use, diminished breath sounds on the left with good breath sounds on the right. LABORATORY STUDIES: Showed normal electrolytes, a ProTime of 13.1, white count of only 1.6 with hematocrit of 34.8 and a platelet count of 90,000. I had sought approval after our 1st visit and diagnosis to provide a possible left-sided intervention to include pleurodesis either by thoracoscopic approach or by chest tube drainage and installation of pleural sclerosant. In any case, he was admitted by Dr. Smith on this occasion with findings as described and he underwent a chest CT scan which showed a right pulmonary embolism, reaccumulation of the large left pleural effusion and a tiny residual left-sided pneumothorax. Only a small portion of left upper lobe was aerated on the most recent image. Electronically Signed By: MELIA OTERO MD 11/28/20 1553 PATIENT NAME: UTE SU CONSULTATION DATE OF : 52 REPORT #: [id number] PHYSICIAN: MELIA OTERO MD PCP: MARIMAR GOODE REPORT IS CONFIDENTIAL AND NOT TO BE RELEASED WITHOUT AUTHORIZATION [address] [address] Signed He has been treated with broad-spectrum antibiotics including vancomycin and cefepime and his CBC monitored. Today two days after admission, his white count is still only 1.6 with hematocrit of 30.2, platelets of 72,000, previously 90,000. Absolute neutrophil count is less than 500. Notably, he has tested negative for COVID once again. Currently, the patient notes shortness of breath if he coughs excessively. Also notes episodic hemoptysis. The patient is currently treated with therapeutic Lovenox 80 mg subcutaneously b.i.d. and vancomycin and Zithromax have been administered as well. He is on bronchodilator therapy as well as cefepime and Tylenol. Currently, the patient does not feel excessively short of breath. His hemoptysis is not progressive and not massive by any means. He denies any spine or long bone pain currently. SOCIAL HISTORY: He is a prisoner at [facility]. He is accompanied by two guards at this time. PHYSICAL EXAMINATION: GENERAL: This is a pleasant and cooperative, white man. VITAL SIGNS: Temperature today 97.6, pulse 99, blood pressure 115/59, O2 saturation 98% on 2 L nasal cannula. NECK: Shows trachea to be midline. He has no jugular venous distention. LUNGS: Breath sounds on the right, reasonably clear, on the left are present but are diminished comparatively. EXTREMITIES: Show no clubbing, cyanosis, or edema. LABORATORY DATA: Lab study as noted white count 1.6, hematocrit 30.2, platelet count is 72,000. Coag studies with a PT of 13.1, INR of 1.02, PTT is 30. Chem profile shows a sodium of 131, calcium is 7.4, alkaline phosphatase 134, albumin 3.1. Imaging studies are as previously noted. Abdominal CT performed on November 21 showed a bladder stone. No acute changes. Liver without sign of metastatic disease and spondylosis with an L4-5 large disk bulge and an ununited old L4 spinous process fracture. ASSESSMENT: The patient now has not only the left pleural malignant effusion confirmed to be non-small cell lung cancer, but also presumably a pneumonia process as well as a post chemotherapy related bone marrow suppression showing pancytopenia. His absolute Electronically Signed By: MELIA OTERO MD 11/28/20 1553 PATIENT NAME: UTE SU CONSULTATION DATE OF : 52 REPORT #: [id number] PHYSICIAN: MELIA OTERO MD PCP: MARIMAR GOODE REPORT IS CONFIDENTIAL AND NOT TO BE RELEASED WITHOUT AUTHORIZATION [facility] [address] [place], [place] [address] Signed neutrophil count would be considered severely low. I have conferred with Dr. Smith, who advised me that the patient isolation for low ANC is no longer generally considered necessary, particularly given his broad-spectrum antibiotic therapy currently. Given his low platelet count and other similar factors, it would be relatively appropriate to perform significantly invasive left pleural intervention, specifically thoracoscopy or even chest tube placement right now. Left-sided thoracentesis would be a reasonable intervention for shortness of breath and to diminish his pleural fluid burden, though clinically he is not as symptomatic now as he was previously. I did discuss that his thrombocytopenia and neutropenia and anemia are indicative of the effect of the chemotherapy most dominantly and that recovery of his bone marrow function and replenishment of his platelets and so forth is likely possible. Platelet transfusion could be a consideration if necessary, more invasive procedure is anticipated, but his current platelet count would be reasonably safe to consider for left-sided thoracentesis for symptom control of his effusion, pending better recovery and palliative intervention to include left-sided pleurodesis by whatever technique it is deemed most appropriate (thoracoscopic Talc insufflation versus chest tube related sclerosant such as doxycycline). Additionally of course, it is uncertain if he has ever had full expansion of his left lung despite thoracentesis at least twice in which case, pleurodesis would be ineffective generally speaking. Apposition of the parietal and visceral pleuras would be necessary to have a durable and meaningful obliteration of the pleural space to provide optimal palliation. In such a case, a tunneled catheter (PleurX catheter) might be a consideration. For now, we will simply repeat his CBC for tomorrow and check a plain chest x-ray to assess his current status of the pleural effusion. Discussed all this with him in detail, he understands and agrees. Melia Otero MD JM/MODL /[id number] cc: . Electronically Signed By: MELIA OTERO MD 11/28/20 1553 PATIENT NAME: UTE SU CONSULTATION DATE OF : 52 REPORT #: [id number] PHYSICIAN: MELIA OTERO MD PCP: MARIMAR GOODE REPORT IS CONFIDENTIAL AND NOT TO BE RELEASED WITHOUT AUTHORIZATION [facility] [address] [place] [address] [place], [place] [address] Signed Jorge Smith MD Copies: JORGE SMITH MD ~ Electronically Signed By: MELIA OTERO MD 11/28/20 1553 PATIENT NAME: UTE SU CONSULTATION DATE OF : 52 REPORT #: [id number] PHYSICIAN: MELIA OTERO MD PCP: MARIMAR GOODE REPORT IS CONFIDENTIAL AND NOT TO BE RELEASED WITHOUT AUTHORIZATION
--- NOTE | 2020-11-30 10:37 | DS ---
[facility] [address] [facility] [place], [place] [address] Signed ADMISSION DATE: 11/21/2020 DISCHARGE DATE: DICTATION CANCELED. MD ABBEY Galvan/MAUREEN /[id number] Copies: ~ Electronically Signed By: MELIA OTERO MD 11/30/20 1037 PATIENT NAME: UTE SU DISCHARGE SUMMARY DATE OF : 52 REPORT #: [id number] PHYSICIAN: MELIA OTERO MD PCP: MARIMAR GOODE REPORT IS CONFIDENTIAL AND NOT TO BE RELEASED WITHOUT AUTHORIZATION
[2020-12-02] MEDS ORDERED: ENOXAPARIN80 MG/0.8 SUB-Q (16:00)
[2020-12-02] MEDS ORDERED: HYDROCODON-ACE1 EA10 PO (16:02)
[2020-12-02] MEDS ORDERED: IPRAT-ALBUT 0.5-3 ML INH (16:03)
== END 2020-12-03 13:40 | disposition home or self-care (01) | DRG 180 ==
LOC: ED 20:15 → MS 23:42
PROVIDERS: ADMIT Internal Medicine; ATTEND Internal Medicine
PROC: 0W9B3ZZ Drainage of Left Pleural Cavity, Percutaneous Approach (ICD-10-PCS; principal; 2020-11-25)
PROC: 0W9B30Z Drainage of Left Pleural Cavity with Drainage Device, Percutaneous Approach (ICD-10-PCS; 2020-11-26)
DX: C34.90 Malignant neoplasm of unspecified part of unspecified bronchus or lung (principal); I26.99 Other pulmonary embolism without acute cor pulmonale; J18.9 Pneumonia, unspecified organism; D61.810 Antineoplastic chemotherapy induced pancytopenia; J91.0 Malignant pleural effusion; J93.9 Pneumothorax, unspecified; Z20.822 Contact with and (suspected) exposure to COVID-19; D70.1 Agranulocytosis secondary to cancer chemotherapy; T45.1X5A Adverse effect of antineoplastic and immunosuppressive drugs, initial encounter; I10 Essential (primary) hypertension; E78.5 Hyperlipidemia, unspecified; I25.10 Atherosclerotic heart disease of native coronary artery without angina pectoris; J44.9 Chronic obstructive pulmonary disease, unspecified; N40.0 Benign prostatic hyperplasia without lower urinary tract symptoms; F39 Unspecified mood [affective] disorder; K21.9 Gastro-esophageal reflux disease without esophagitis; Z99.81 Dependence on supplemental oxygen; Z87.891 Personal history of nicotine dependence; Z95.1 Presence of aortocoronary bypass graft; Z98.890 Other specified postprocedural states; Z88.5 Allergy status to narcotic agent; Z88.8 Allergy status to other drugs, medicaments and biological substances; Z79.899 Other long term (current) drug therapy; Z79.82 Long term (current) use of aspirin
CPT/HCPCS: 00520; 71045; 71260; 74177; 80048; 80053; 80202; 80500; 83605; 83735; 85007; 85025; 85610; 85730; 86850; 86900; 86901; 87040; 87070; 87205; 94640; 94760; 94762; 96375; 99285-25; C9803; J0456; J0692; J0696; J1100; J1644; J1650; J2001; J2405; J2704; J3010; J3370; J7060; Q9967; U0003

== ENCOUNTER 2020-12-18 13:58 | Emergency (ER) | payer OTHER ==
[~2020-12-18] VITALS: Ht 175.3 cm; Wt 82.2 kg
[~2020-12-18 13:58] MED LIST changes: +CALCIUM CITRAT1 EA15 PO; +COLACE100 MG PO; +DEXAMETHASONE4 MG PO; +ENOXAPARIN80 MG/0.8 SUB-Q; +FLUVOXAMINE MAL50 MG PO; +FOLIC ACID0.4 MG PO; +HYDROCODON-ACE1 EA10 PO; +IPRAT-ALBUT 0.5-3 ML INH; +LACTULOSE10 GM/152 PO; +SINGULAIR10 MG PO
--- OUTSIDE RECORDS SUMMARY | 2020-12-18 14:06 | XMS ---
PreManage Notification: UTE SU Security Security Nurse Events No recent Security Events currently on file CRITERIA MET - [facility] - 2 Visits in 30 Days [facility]Current PHONE: Unknown MARIMAR GOODE Rail Manager: Clinical 11/23/2020-Current PHONE: [phone] Nasreen has no Care Guidelines for this patient. [place] VISIT COUNT (12 MO.) [address] [place] [address] TOTAL 4 NOTE: Visits indicate total known visits. ED/UCC VISIT TRACKING (12 MO.) 12/18/2020 13:59 [facility] [place] TYPE: Emergency COMPLAINT: - DIFFICULTY BREATHING 11/21/2020 20:16 [facility] [place] TYPE: Emergency COMPLAINT: - ABD PAIN, COUGHING BLOOD 11/06/2020 08:59 [facility] [place] TYPE: Emergency COMPLAINT: - SOB DIAGNOSES: - Essential (primary) hypertension - Personal history of nicotine dependence - senior living (current) use of aspirin - Shortness of breath - Allergy status to other drugs, medicaments and biological substances - Other correction (current) drug therapy - Malignant pleural effusion [...] substances - Pure hypercholesterolemia, unspecified - Other correction (current) drug therapy - Essential (primary) hypertension - joint terminal attack controller (current) use of aspirin - Other nonspecific abnormal finding of lung field - Personal history of nicotine dependence - Pleural effusion, not elsewhere classified INPATIENT VISIT TRACKING (12 MO.) 11/21/2020 23:42 [facility] [place] TYPE: Medical Surgical COMPLAINT: - PE/PLEURAL EFFUSION DIAGNOSES: - Chronic obstructive pulmonary disease, unspecified - Pneumonia, unspecified organism - Adverse effect of antineoplastic and immunosuppressive drugs, initial encounter - Other termite technician (current) drug therapy - Malignant pleural effusion - Hyperlipidemia, unspecified - Unspecified mood [affective] disorder - Personal history of nicotine dependence - Adverse effect of antineoplastic and immunosuppressive drugs, initial encounter - Hyperlipidemia, unspecified - Essential (primary) hypertension - Unspecified mood [affective] disorder - Allergy status to other drugs, medicaments and biological substances - Allergy status to other drugs, medicaments and biological substances - Presence of aortocoronary bypass graft - Other pulmonary embolism without acute cor pulmonale - Pneumonia, unspecified organism - Agranulocytosis secondary to cancer chemotherapy - Pneumothorax, unspecified - Malignant neoplasm of unspecified part of unspecified bronchus or lung - Agranulocytosis secondary to cancer chemotherapy - Personal history of nicotine dependence - 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 - Other pulmonary embolism without acute cor pulmonale - joint terminal attack controller (current) use of aspirin - Gastro-esophageal reflux disease without esophagitis - Benign prostatic hyperplasia without lower urinary tract symptoms - Other termite technician (current) drug therapy - Malignant neoplasm of unspecified part of unspecified bronchus or lung - Benign prostatic hyperplasia without lower urinary tract symptoms - Presence of aortocoronary bypass graft - Pneumothorax, unspecified - Malignant pleural effusion - Allergy status to narcotic agent - Other pulmonary embolism without acute cor pulmonale - Other specified postprocedural states - Dependence on supplemental oxygen - senior living (current) use of aspirin - Other specified postprocedural states - Essential (primary) hypertension - Antineoplastic chemotherapy induced pancytopenia - Dependence on supplemental oxygen - Gastro-esophageal reflux disease without esophagitis - Antineoplastic chemotherapy induced pancytopenia - 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 [place] [...] Allergy status to narcotic agent - Atelectasis [email or web address]
[2020-12-18] MEDS ORDERED: SINGULAIR10 MG PO (14:15)
== END 2020-12-18 16:00 | disposition home or self-care (01) ==
LOC: ED 13:58
DX: C34.90 Malignant neoplasm of unspecified part of unspecified bronchus or lung (principal); J91.0 Malignant pleural effusion; I10 Essential (primary) hypertension; E78.00 Pure hypercholesterolemia, unspecified; J44.9 Chronic obstructive pulmonary disease, unspecified; K21.9 Gastro-esophageal reflux disease without esophagitis; I20.9 Angina pectoris, unspecified; Z97.8 Presence of other specified devices; Z87.891 Personal history of nicotine dependence; Z88.5 Allergy status to narcotic agent; Z88.8 Allergy status to other drugs, medicaments and biological substances; Z88.4 Allergy status to anesthetic agent; Z79.899 Other long term (current) drug therapy
CPT/HCPCS: 99283

== ENCOUNTER → 2021-01-08 | Emergency (ER) | payer OTHER ==
[~2021-01-08] VITALS: Ht 175.3 cm; Wt 72.4 kg
[~2021-01-08] MED LIST changes: +LOVENOX40 MG/0.4; +PERCOCET 5-3251 EACH PO; +TAGRISSO80 MG PO
== END ==
LOC: ED 06:52
DX: J86.9 Pyothorax without fistula (principal); I10 Essential (primary) hypertension; E78.00 Pure hypercholesterolemia, unspecified; J44.9 Chronic obstructive pulmonary disease, unspecified; K21.9 Gastro-esophageal reflux disease without esophagitis; Z87.891 Personal history of nicotine dependence; Z88.8 Allergy status to other drugs, medicaments and biological substances; Z88.5 Allergy status to narcotic agent; Z88.1 Allergy status to other antibiotic agents; Z79.899 Other long term (current) drug therapy; Z20.822 Contact with and (suspected) exposure to COVID-19
CPT/HCPCS: 71045; 71260; 80053; 85025; 99285-25; J0692; J3370; J7060; Q9967; U0003

== ENCOUNTER 2021-06-29 13:23 | Emergency (ER) | payer OTHER ==
[~2021-06-29] VITALS: Ht 175.3 cm; Wt 72.1 kg
--- NOTE | 2021-06-29 15:40 | EKG ---
[facility] [address] [facility] [place] [address] Signed Sinus rhythm with occasional premature ventricular complexes T wave abnormality, consider lateral ischemia Abnormal ECG No previous ECGs available Confirmed by JORGE SMITH MD ([id number]) on 06/29/2021 3:39:43 PM Electronically Signed By: JORGE SMITH MD 06/29/21 1540 PATIENT NAME: UTE SU Electrocardiogram DATE OF : 52 PHYSICIAN: JORGE SMITH MD REPORT #: [id number] REPORT IS CONFIDENTIAL AND NOT TO BE RELEASED WITHOUT AUTHORIZATION
--- NOTE | 2021-07-01 13:15 | EKG ---
[facility] [address] [place] [address] Signed Sinus rhythm with 1st degree AV block Left axis deviation Minimal voltage criteria for LVH, may be normal variant ( R in aVL ) Prolonged QT Abnormal ECG When compared with ECG of 29-JUN-2021 13:26, premature ventricular complexes are no longer present QT has lengthened Confirmed by JORGE SMITH MD ([id number]) on 07/01/2021 1:15:01 PM Electronically Signed By: JORGE SMITH MD 07/01/21 1315 PATIENT NAME: UTE SU Electrocardiogram DATE OF : 52 PHYSICIAN: JORGE SMITH MD REPORT #: [id number] REPORT IS CONFIDENTIAL AND NOT TO BE RELEASED WITHOUT AUTHORIZATION
== END 2021-06-29 21:15 | disposition short-term general hospital (02) ==
LOC: ED 13:23
DX: I21.4 Non-ST elevation (NSTEMI) myocardial infarction (principal); C34.90 Malignant neoplasm of unspecified part of unspecified bronchus or lung; R55 Syncope and collapse; Z20.822 Contact with and (suspected) exposure to COVID-19; I10 Essential (primary) hypertension; E78.00 Pure hypercholesterolemia, unspecified; J44.9 Chronic obstructive pulmonary disease, unspecified; K21.9 Gastro-esophageal reflux disease without esophagitis; Z87.891 Personal history of nicotine dependence; Z88.8 Allergy status to other drugs, medicaments and biological substances; Z88.5 Allergy status to narcotic agent; Z88.1 Allergy status to other antibiotic agents; Z79.899 Other long term (current) drug therapy
CPT/HCPCS: 36415; 71045; 80053; 84484; 85025; 85730; 93005; 93010; 96374; 96375; 99285-25; C9803; J0461; J1644; J7040; U0003